=== PATIENT | female | born 2000 | race Native Hawaiian/Other Pacific Islander ===

== ENCOUNTER 2021-02-25 06:44 | Emergency (ER) | payer SELFPAY ==
[2021-02-25] MEDS ORDERED: SODIUM CHLORIDE 0.9% 1000 ML 1,000 ML IV ONE (07:21)
[2021-02-25] MEDS ORDERED: MORPHINE 4 MG/1 ML INJ IV ONE (07:21)
[2021-02-25] MEDS ORDERED: ONDANSETRON 4 MG/2 ML INJ IV ONE (07:21)
[2021-02-25 07:58] LABS: Basophils # (Auto) 0.1 K/mm3 (0.0-0.1); Basophils % (Auto) 1.1 % (0.0-1.8); Eosinophils # (Auto) 0.1 K/mm3 (0.0-0.4); Eosinophils % (Auto) 2.1 % (0.0-4.3); Hematocrit 35.2 % (30.3-42.9); Hemoglobin 11.5 gm/dl (10.1-14.3); Lymphocytes # (Auto) 2.6 K/mm3 (1.2-5.4); Lymphocytes % (Auto) 39.8 % (13.4-35.0); Mean Corpuscular HGB Conc 33 % (30-34); Mean Corpuscular Volume 81 fl (79-97); Monocytes # (Auto) 0.5 K/mm3 (0.0-0.8); Platelet Count 225 K/mm3 (140-440); Red Blood Count 4.37 M/mm3 (3.65-5.03)
[2021-02-25 08:08] LABS: INR 0.95 (0.87-1.13); Partial Thromboplastin Time 33.2 Sec. (24.2-36.6)
[2021-02-25 08:37] LABS: Alanine Aminotransferase 21 units/L (7-56); Albumin 4.3 g/dL (3.9-5); Blood Urea Nitrogen 4 mg/dL (7-17); Calcium 8.8 mg/dL (8.4-10.2); Hemolysis Index 63
[2021-02-25 08:40] LABS: BUN/Creatinine Ratio 10
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
[2021-02-25 10:29] VITALS: BP 103/61
--- NOTE | 2021-02-26 08:56 | Electrocardiograph Report ---
[facility] Test Date: 2021-02-25 Test Time: 07:54:59 Pat Name: ANSHUL CORDON Department: Room: Gender: F Stem Mounter: BRYAN : 2000 Requested By: ILANA CHOWDHURY Order Number: [id number] Reading MD: Choco Tamayo Measurements Intervals [place] Rate: 66 P: 36 AK: 125 QRS: 40 QRSD: 87 T: 49 QT: 397 QTc: 417 Interpretive Statements Sinus rhythm Low voltage, precordial leads No previous ECG available for comparison Electronically Signed On 02-26-2021 8:55:56 EST by Choco Tamayo
== END 2021-02-25 10:15 | disposition home or self-care (01) ==
LOC: ED 06:44
DX: S13.4XXA Sprain of ligaments of cervical spine, initial encounter (principal); S20.211A Contusion of right front wall of thorax, initial encounter; V89.2XXA Person injured in unspecified motor-vehicle accident, traffic, initial encounter; Y93.89 Activity, other specified; Y92.488 Other paved roadways as the place of occurrence of the external cause; Y99.8 Other external cause status
CPT/HCPCS: 36415; 71260; 72125; 80053; 83690; 84484; 84703; 85025; 85610; 85730; 93005; 96361; 96374; 96375; 99284; J2270; J2405; J7030; Q9967; Q0162